=== PATIENT | female | born 1955 | race Caucasian/White ===

== ENCOUNTER 2020-09-04 10:15 | Emergency (ER) | payer OTHER ==
[~2020-09-04] VITALS: Ht 154.9 cm; Wt 63.5 kg
[2020-09-04] MEDS ORDERED: NURTEC ODT75 MG PO (10:28)
[2020-09-04] MEDS ORDERED: ZOFRAN4 MG PO (10:28)
[2020-09-04] MEDS ORDERED: ZEBUTAL 50-3251 EACH PO (10:30)
== END 2020-09-04 16:58 | disposition home or self-care (01) ==
LOC: ER 10:15
DX: G43.919 Migraine, unspecified, intractable, without status migrainosus (principal); R11.11 Vomiting without nausea